=== PATIENT | female | born 1935 | race Caucasian/White ===

== ENCOUNTER 2017-12-30 21:10 | Emergency (ER) | payer OTHER, MEDICARE ==
[2017-12-30 21:27] LABS: ADD MAN DIFF? NO
[2017-12-30 21:28] LABS: WHITE BLOOD COUNT 16.6 10^3/ul (4.8-10.8)
[2017-12-30 21:28] LABS: BASOPHILS % 0.1 % (0.0-2.0); HEMATOCRIT 27.3 % (37.0-47.0); HEMOGLOBIN 8.5 g/dl (12.0-16.0); LYMPHOCYTES # 1.1 10^3/ul (0.8-2.9); LYMPHOCYTES % 6.6 % (15.0-51.0); MEAN CORPUSCULAR HEMOGLOBIN 28.7 pg (29.0-33.0); MEAN CORPUSCULAR HGB CONC 31.1 g/dl (32.0-37.0); MEAN CORPUSCULAR VOLUME 92.2 fl (82.0-101.0); MEAN PLATELET VOLUME 11.5 fl (7.4-10.4); MONOCYTE # 0.7 10^3/ul (0.3-0.9); MONOCYTES % 3.9 % (0.0-11.0); NEUTROPHIL # 14.8 10^3/ul (1.6-7.5); NEUTROPHILS % 88.8 % (39.0-77.0); PLATELET COUNT 108 10^3/UL (140-415); RED BLOOD COUNT 2.96 10^6/ul (4.20-5.40); RED CELL DISTRIBUTION WIDTH 17.2 % (11.5-14.5)
[2017-12-30 21:34] LABS: AADO2 Arterial 150.8 mmHg (7.0-24.0); Allen Test ACCEPTAB; Arterial Base Excess 5.2 mmol/L (-3.0-3); Arterial Blood Gas Oxygen Sat 97.2 mmHG (95.0-100.0); Arterial COHb 0.9 % (0.0-3.0); Arterial Fraction of Oxyhgb 96.1 % (93.0-99.0); Arterial HCO3 31.4 mmol/L (22.0-26.0); Arterial MetHb 0.2 % (0.0-1.5); Arterial Total Hemglobin 8.2 g/dl (12.0-18.0); Arterial pCO2 56.3 mmhg (35-45); MODE MASK - SIMPLE
[2017-12-30 21:47] LABS: ANION GAP 13 (8-16); BLOOD UREA NITROGEN 59 mg/dl (7-20); CALCIUM 8.7 mg/dl (8.4-10.2); CARBON DIOXIDE 30 mmol/L (21-31); CHLORIDE 98 mmol/L (97-110); CREATININE 1.49 mg/dl (0.44-1.00); GLUCOSE 204 mg/dl (70-220); POTASSIUM 4.5 mmol/L (3.5-5.1); SODIUM 136 mmol/L (135-144)
[2017-12-30] MEDS: IPRATROPIUM (NEB) 0.5 MG/2.5 ML AMP HHN (21:50)
[2017-12-30] MEDS: ALBUTEROL 0.083% (NEB) 2.5 MG/3 ML AMP HHN (21:50)
[2017-12-30 21:59] LABS: B-TYPE NATRIURETIC PEPTIDE 3870 PG/ML (0-450); TROPONIN-I 0.023 ng/ml (0.000-0.120)
[2017-12-30 22:40] LABS: ETHANOL < 10.0 mg/dl; SALICYLATE < 1.0 mg/dl (5.0-30.0)
[2017-12-30 22:40] LABS: ACETAMINOPHEN < 10.0 ug/ml (10.0-30.0)
[2017-12-30 22:50] LABS: URINE PH (Dip) POC 5.5 (5.0-8.5)
[2017-12-30 22:50] LABS: URINE BLOOD (Dip) POC Trace-lysed (NEGATIVE); URINE GLUCOSE (Dip) POC Negative (NEGATIVE); URINE KETONES (Dip) POC Negative (NEGATIVE); URINE LEUKOCYTE EST (Dip) POC Trace (NEGATIVE); URINE NITRITE (Dip) POC Negative (NEGATIVE); URINE TOTAL PROTEIN POC 1+ (NEGATIVE)
[2017-12-30] MEDS ORDERED: ONDANSETRON 4 MG INJ (23:11)
[2017-12-30] MEDS: ONDANSETRON 4 MG INJ IV (23:36)
[2017-12-30 23:50] LABS: ADD UMIC YES; UR ASCORBIC ACID NEGATIVE (NEGATIVE); UR BILIRUBIN (Dip) NEGATIVE (NEGATIVE); UR BLOOD (Dip) NEGATIVE (NEGATIVE); UR CLARITY CLEAR (CLEAR); UR COLOR YELLOW (YELLOW); UR GLUCOSE (Dip) NEGATIVE (NEGATIVE); UR KETONES (Dip) NEGATIVE (NEGATIVE); UR LEUKOCYTE ESTERASE (Dip) TRACE Leu/ul (NEGATIVE); UR MUCUS FEW /HPF (NONE SEEN); UR NITRITE (Dip) NEGATIVE (NEGATIVE); UR RBC 0 /HPF (0-5); UR SPECIFIC GRAVITY (Dip) 1.015 (1.003-1.030); UR TOTAL PROTEIN (Dip) 1+ mg/dl (NEGATIVE); UR UROBILINOGEN (Dip) NEGATIVE (NEGATIVE); UR WBC 3 /HPF (0-5)
[2017-12-31 00:19] LABS: LACTIC ACID 0.7 mmol/L (0.5-2.0)
[2017-12-31 00:25] LABS: AMPHETAMINE/METHAMPHETAMINE Negative (NEGATIVE); BARBITURATES Negative (NEGATIVE); BENZODIAZEPINES Negative (NEGATIVE); CANNABINOIDS Negative (NEGATIVE); COCAINE Negative (NEGATIVE); OPIATES Positive (NEGATIVE)
== END 2017-12-31 02:25 | disposition short-term general hospital (02) ==
LOC: E/R 12-31 02:25
DX: J96.01 Acute respiratory failure with hypoxia (principal); I50.9 Heart failure, unspecified; D72.829 Elevated white blood cell count, unspecified; D64.9 Anemia, unspecified; I10 Essential (primary) hypertension; J44.9 Chronic obstructive pulmonary disease, unspecified; R41.82 Altered mental status, unspecified
CPT/HCPCS: 36415; 36600; 70450; 71045; 80048; 80307; 81001; 81003; 82803; 83605; 83880; 84484; 85025; 93005; 94644; 94660; 96374; 99291-25